=== PATIENT | female | born 1965 | race African-American/Black ===

== ENCOUNTER 2023-09-17 17:16 | Emergency (ER) | payer MEDICAID ==
[~2023-09-17] VITALS: Ht 167.6 cm; Wt 91.0 kg
[2023-09-17 17:25] VITALS: TEMP 98.4; O2SAT 100
[2023-09-17] MEDS ORDERED: SULF1TAB48 MT (20:58)
[2023-09-17] MEDS ORDERED: IBUP-2030 MT (20:59)
[2023-09-17] MEDS: LIDOCAINE HCL/PF 1% 10 MG/ML 5ML VIAL INFIL ONE (21:00)
[2023-09-17 21:04] VITALS: BP 146/78; PULSE 72; RESP 14
== END 2023-09-17 21:05 | disposition home or self-care (01) ==
LOC: ER 17:16
DX: L02.416 Cutaneous abscess of left lower limb (principal); L72.3 Sebaceous cyst
CPT/HCPCS: 99283; J3490; 99281